=== PATIENT | female | born 1965 | race Caucasian/White ===

== ENCOUNTER 2016-11-28 18:56 | Emergency (ER) | payer MEDICAID ==
[~2016-11-28] VITALS: Ht 149.9 cm; Wt 88.0 kg
[2016-11-28 18:59] VITALS: BP 122/68; PULSE 73; RESP 18; TEMP 98.7; O2SAT 96
[2016-11-28] MEDS ORDERED: VENL150C39 PO (21:54)
[2016-11-28] MEDS ORDERED: CLOP75TA PO (21:54)
[2016-11-28] MEDS ORDERED: AMLO10TA2 PO (21:54)
[2016-11-28] MEDS ORDERED: PROP80CA PO (21:54)
[2016-11-28] MEDS ORDERED: LISI10TA3 PO (21:54)
[2016-11-28] MEDS ORDERED: TOPA50TA7 PO (21:54)
[2016-11-28] MEDS ORDERED: PHEN100C PO (21:54)
[2016-11-28] MEDS ORDERED: CYCL1TAB29 PO (21:54)
[2016-11-28] MEDS ORDERED: ATOR20TA15 PO (21:54)
[2016-11-28] MEDS ORDERED: GABA300C5 PO (21:54)
[2016-11-28] MEDS ORDERED: SENN8.6T81 PO (21:54)
[2016-11-28] MEDS ORDERED: RANI150T PO (21:54)
[2016-11-28] MEDS ORDERED: ASPI81TA11 PO (21:54)
[2016-11-28] MEDS ORDERED: TRAZ150T75 PO (21:54)
[2016-11-28 22:09] VITALS: O2SAT 97
--- NOTE | 2016-11-28 22:12 | PD ---
HPI Chief Complaint: Headache Time Seen by Provider: 21:28 Travel History International Travel<30 days: No Contact w/Intl Traveler<30days: No Traveled to known affect area: No History of Present Illness HPI The patient is 51 years old. She arrives with abdominal pain on and off for about 1 week. She's had occasional episodes of diarrhea, nonbloody. She's had no fever. She has chronic abdominal and back pain. she is concerned she might have diverticulitis. There has been no abnormal vaginal bleeding or discharge. Onset gradual. Severity moderate PFSH Past Medical History Cerebrovascular Accident: Yes (2005, left sided weakness) Diverticulitis: Yes Kidney Stones: Yes Medical other: Yes (metabolic encephalopathy) ?: Not LMP: MENOPAUSE Past Surgical History Tonsillectomy: Yes Other Surgery: Yes (partial left nephrectomy) Social History Alcohol Use: No Tobacco Use: No Substance Use: No Allergies-Medications (Allergen,Severity, Reaction): Coded Allergies: Compazine (Verified Allergy, Severe, HYPERTENSION, 11/28/16) Imitrex (Verified Allergy, Severe, HYPERTENSION, 11/28/16) Phenergan (Verified Allergy, Severe, HYPERTENSION, 11/28/16) Reported Meds & Prescriptions Reported Meds & Active Scripts Active Bentyl (Dicyclomine HCl) 10 Mg Cap 10 Mg PO TID PRN Reported Phenytoin Extended 100 Mg Cap 100 Mg PO HS Flexeril (Cyclobenzaprine HCl) 10 Mg Tab 10 Mg PO TID Gabapentin 300 Mg Cap 300 Mg PO BID Topamax (Topiramate) 50 Mg Tab 50 Mg PO BID Sennosides 8.6 Mg Tab 8.6 Mg PO DAILY Propranolol ER 24 HR (Propranolol HCl) 80 Mg Cap 80 Mg PO DAILY Venlafaxine ER 24 HR (Venlafaxine HCl) 150 Mg Cap 150 Mg PO BID Trazodone (Trazodone HCl) 150 Mg Tab 150 Mg PO HS Amlodipine (Amlodipine Besylate) 10 Mg Tab 10 Mg PO HS Lisinopril 10 Mg Tab 10 Mg PO HS Clopidogrel (Clopidogrel Bisulfate) 75 Mg Tab 75 Mg PO DAILY Atorvastatin (Atorvastatin Calcium) 20 Mg Tab 20 Mg PO HS Ranitidine (Ranitidine HCl) 150 Mg Tab 150 Mg PO HS Aspirin EC (Aspirin) 81 Mg Tabdr 81 Mg PO DAILY Review of Systems Except as stated in HPI: all other systems reviewed are Neg Physical Exam Narrative GENERAL: 51 yo F, NAD, WNWD SKIN: Warm and dry. HEAD: Atraumatic. Normocephalic. EYES: Pupils equal and round. No scleral icterus. No injection or drainage. ENT: No nasal bleeding or discharge. Mucous membranes pink and moist. NECK: Trachea midline. No JVD. CARDIOVASCULAR: Regular rate and rhythm. RESPIRATORY: No accessory muscle use. Clear to auscultation. Breath sounds equal bilaterally. GASTROINTESTINAL: Soft. Diffuse non-specific tenderness. No evidence peritonitis MUSCULOSKELETAL: Extremities without clubbing, cyanosis, or edema. No obvious deformities. Left lower extremity prosthesis. NEUROLOGICAL: Awake and alert. No obvious cranial nerve deficits. Motor grossly within normal limits. Five out of 5 muscle strength in the arms and legs. Normal speech. PSYCHIATRIC: Appropriate mood and affect; insight and judgment normal. Data Data Last Documented VS Vital Signs Date Time Temp Pulse Resp B/P Pulse Ox O2 Delivery O2 Flow Rate FiO2 11/28/16 22:48 71 16 132/87 98 Room Air 11/28/16 18:59 98.7 Orders Complete Blood Count With Diff (11/28/16 22:07) Lipase (11/28/16 22:07) Lactic Acid (11/28/16 22:07) Urinalysis - C+S If Indicated (11/28/16 22:07) Iv Access Insert/Monitor (11/28/16 22:07) Ecg Monitoring (11/28/16 22:07) Oximetry (11/28/16 22:07) Sodium Chloride 0.9% Flush (Ns Flush) (11/28/16 22:15) Comprehensive Metabolic Panel (11/28/16 22:25) Lorazepam Inj (Ativan Inj) (11/28/16 22:45) Al-Mag Hy-Si 40-40-4 Mg/Ml Liq (Mag-Al P (11/28/16 22:45) Lidocaine 2% Viscous (Xylocaine 2% Visco (11/28/16 22:45) Labs Laboratory Tests Test 11/28/16 11/28/16 11/28/16 22:00 22:10 22:25 Urine Color YELLOW Urine Turbidity HAZY Urine pH 5.5 Urine Specific [place] 1.025 Urine Protein TRACE mg/dL Urine Glucose (UA) NEG mg/dL Urine Ketones NEG mg/dL Urine Occult Blood NEG Urine Nitrite NEG Urine Bilirubin NEG Urine Urobilinogen LESS THAN 2.0 MG/DL Urine Leukocyte Esterase TRACE Urine RBC 2 /hpf Urine WBC 4 /hpf Urine Squamous Epithelial 9 /hpf Cells Urine Bacteria OCC /hpf Urine Mucus FEW /lpf Microscopic Urinalysis Comment CULT NOT INDICATED White Blood Count 8.0 TH/MM3 Red Blood Count 4.62 MIL/MM3 Hemoglobin 15.0 GM/DL Hematocrit 43.7 % Mean Corpuscular Volume 94.4 FL Mean Corpuscular Hemoglobin 32.4 PG Mean Corpuscular Hemoglobin 34.3 % Concent Red Cell Distribution Width 14.0 % Platelet Count 200 TH/MM3 Mean Platelet Volume 8.8 FL Neutrophils (%) (Auto) 55.6 % Lymphocytes (%) (Auto) 33.2 % Monocytes (%) (Auto) 9.2 % Eosinophils (%) (Auto) 1.6 % Basophils (%) (Auto) 0.4 % Neutrophils # (Auto) 4.4 TH/MM3 Lymphocytes # (Auto) 2.7 TH/MM3 Monocytes # (Auto) 0.7 TH/MM3 Eosinophils # (Auto) 0.1 TH/MM3 Basophils # (Auto) 0.0 TH/MM3 CBC Comment DIFF FINAL Differential Comment Sodium Level 142 MEQ/L Potassium Level 4.4 MEQ/L Chloride Level 106 MEQ/L Carbon Dioxide Level 24.0 MEQ/L Anion Gap 12 MEQ/L Blood Urea Nitrogen 12 MG/DL Creatinine 0.86 MG/DL Estimat Glomerular Filtration 70 ML/MIN Rate Random Glucose 91 MG/DL Calcium Level 8.8 MG/DL Total Bilirubin 0.3 MG/DL Aspartate Amino Transf 79 U/L (AST/SGOT) Alanine Aminotransferase 121 U/L (ALT/SGPT) Alkaline Phosphatase 122 U/L Total Protein 7.7 GM/DL Albumin 3.8 GM/DL Lipase 157 U/L Lactic Acid Level 0.9 mmol/L MDM Medical Decision Making Medical Screen Exam Complete: Yes Emergency Medical Condition: Yes Medical Record Reviewed: Yes Differential Diagnosis Constipation, Gastritis, Acute Cholecystitis, Biliary Colic, Pancreatitis, CADE , Hepatitis, Bowel Obstruction, Cystitis, Mesenteric Ischemia, AAA, Appendicitis , Renal Stone/Hydronephrosis, GERD, perforated viscous Narrative Course Unfortunately the patient's workup is reassuring demonstrating trace transaminitis and is otherwise normal. The patient is resting comfortably and feels better, is alert and in no distress. The patients results and examination findings were discussed. The repeat examination is unremarkable and benign. The history, exam, diagnostic testing, and current condition do not suggest any significant pathology to warrant further testing, continued ED treatment, admission, or surgical evaluation at this point. The vital signs have been stable. The patient does not have uncontrollable pain, intractable vomiting, or other significant symptoms. The patient's condition is stable and appropriate for discharge. The patient will pursue further outpatient evaluation with a primary care physician or other designated or consulting physician as indicated in the discharge instructions. The patient expressed understanding and was agreeable with this plan. Diagnosis Primary Impression: Abdominal pain Qualified Code: R10.9 - Abdominal pain, unspecified location Additional Impressions: Back pain Qualified Code: M54.9 - Chronic back pain, unspecified back location, unspecified back pain laterality Elevated liver enzymes Referrals: Calvin Miranda MD 2 days Primary Care Physician 2 days Additional Instructions: You have a choice when it comes to health care, and we are glad that you chose [facility]. Hopefully, we have met your expectations on today's visit. You are welcome to return to [facility] at any time, as we are committed to meeting the health care needs of our community. Med/Other Pt SpecificInfo: Prescription(s) given Scripts Dicyclomine (Bentyl)10 Mg Cap10 Mg PO TID PRN (Bowel Management) #10 CAP Ref 0 Prov:Freddy Templeton MD 11/28/16 Disposition: 01 DISCHARGE HOME Condition: Stable Freddy Templeton MD Nov 28, 2016 22:12
[2016-11-28] MEDS ORDERED: SODIUM CHLORIDE 0.9% FLUSH 5 ML FLUSH IVF PRN (22:15)
[2016-11-28 22:44] LABS: AUTOMATED NEUTROPHIL # 4.4 TH/MM3 (1.8-7.7); BASOPHIL % 0.4 % (0.0-2.0); EOSINOPHIL # 0.1 TH/MM3 (0-0.4); EOSINOPHIL % 1.6 % (0.0-4.0); HEMATOCRIT 43.7 % (35.0-46.0); HEMO FLAGS DIFF FINAL; LYMPH % 33.2 % (9.0-44.0); LYMPHOCYTE # 2.7 TH/MM3 (1.0-4.8); MEAN CELL VOLUME 94.4 FL (80.0-100.0); MEAN CORPUSCULAR HEMOGLOBIN 32.4 PG (27.0-34.0); MEAN CORPUSCULAR HGB CONC 34.3 % (32.0-36.0); MONO % 9.2 % (0.0-8.0); NEUT % 55.6 % (16.0-70.0); PLATELET COUNT 200 TH/MM3 (150-450); RED BLOOD COUNT 4.62 MIL/MM3 (4.00-5.30)
[2016-11-28] MEDS ORDERED: LORazepam 2 MG/ML VIAL IV PUSH ONE (22:45)
[2016-11-28] MEDS ORDERED: ALUMINUM/MAGNESIUM/SIMETH 30 ML CUP PO ONE (22:45)
[2016-11-28] MEDS ORDERED: LIDOCAINE VISCOUS 2% SOLN 15 ML UDC PO ONE (22:45)
[2016-11-28 22:48] VITALS: BP 132/87; PULSE 71; RESP 16; O2SAT 98
[2016-11-28 22:59] LABS: BACTERIA, URINE OCC /hpf; BLOOD, URINE NEG (NEG); COMMENT (UR) CULT NOT INDICATED; CULTURE IF INDICATED CULT NOT INDICATED; GLUCOSE,URINE NEG (NEG); KETONE, URINE NEG (NEG); MUCUS URINE FEW /lpf (OCC); NITRITE,URINE NEG (NEG); PH, URINE 5.5 (5.0-8.5); SQUAMOUS EPITHELIAL CELL URINE 9 /hpf (0-5); URINE COLOR YELLOW (YELLW/STRAW)
[2016-11-28] MEDS ORDERED: DICY10 PO (23:23)
[2016-11-28 23:47] LABS: ALT (GPT) 121 U/L (10-53); ANION GAP 12 MEQ/L (5-15); AST (GOT) 79 U/L (15-37); BLOOD UREA NITROGEN 12 MG/DL (7-18); CHLORIDE 106 MEQ/L (98-107); GLOMERULAR FILTRATION RATE 70 ML/MIN (>89); POTASSIUM 4.4 MEQ/L (3.5-5.1); SODIUM (NA) 142 MEQ/L (136-145)
[2016-11-28 23:50] LABS: ALKALINE PHOSPHATASE 122 U/L (45-117); TOTAL BILIRUBIN ADULT 0.3 MG/DL (0.2-1.0)
== END 2016-11-29 00:40 | disposition home or self-care (01) ==
LOC: NEPC 18:56
DX: R10.9 Unspecified abdominal pain (principal); M54.9 Dorsalgia, unspecified; G89.29 Other chronic pain; R74.8 Abnormal levels of other serum enzymes; Z87.442 Personal history of urinary calculi
CPT/HCPCS: 80053; 81001; 83605; 83690; 85025; 96374; 99284; J2060